=== PATIENT | male | born 1990 | race Caucasian/White ===

== ENCOUNTER → 2020-04-19 | Outpatient (CLI) | payer OTHER ==
[2020-04-19 15:41] LABS: ABSOLUTE NEUTROPHILS 6.4 thou/uL (1.4-8.2); BASOPHILS 0.8 % (0.0-2.0); EOSINOPHILS 0.5 % (0.0-3.0); HEMATOCRIT 48.2 % (42.0-52.0); HEMOGLOBIN 16.8 gm/dL (14.0-18.0); LYMPHOCYTES 18.4 % (24.0-44.0); MCH 31.7 pg (26.0-34.0); MCHC 34.9 g/dL (28.0-37.0); MCV 90.8 fL (80.0-100.0); MONOCYTES 6.7 % (1.0-8.0); PLATELET COUNT 191 thou/uL (150-400); POLYS 73.6 % (36.0-66.0); RBC 5.31 mil/uL (4.50-6.00); RDW 13.1 % (10.5-14.5); WBC 8.7 thou/uL (4.0-11.0)
[2020-04-19 15:56] LABS: ALBUMIN 4.8 g/dL (3.4-5.0); CALCIUM 9.4 mg/dL (8.5-10.1); CREATININE 1.2 mg/dL (0.7-1.3); POTASSIUM 4.2 mmol/L (3.5-5.1); TOTAL PROTEIN 7.5 g/dL (6.4-8.2)
== END ==
LOC: ULTRA 14:21
PROVIDERS: ATTEND Nurse Practitioner
DX: R10.11 Right upper quadrant pain (principal)

== ENCOUNTER → 2020-04-27 | Outpatient (CLI) | payer OTHER | LOC: CAT 08:23 | PROVIDERS: ATTEND Nurse Practitioner | DX: N30.90 Cystitis, unspecified without hematuria (principal); R16.1 Splenomegaly, not elsewhere classified; R10.11 Right upper quadrant pain; R19.7 Diarrhea, unspecified ==